=== PATIENT | male | born 1940 | race Caucasian/White ===

== ENCOUNTER → 2017-02-03 | Day surgery (SDC) | payer MEDICARE, OTHER ==
[~2017-02-03] VITALS: Ht 182.9 cm; Wt 96.3 kg
[~2017-02-03] MED LIST: CIPRO500 MG PO
--- NOTE | ~2017-02-03 | HP ---
[facility] AGE[facility] 76 Y [address] ROOM: [place] [address] [place] [facility] [place]: 02/03/2017 History & Physical DISCHARGE DATE: FAMILY PHYSICIAN: Martín Talbert MD ATTENDING PHYSICIAN: Shana Matthew DATE OF SERVICE: HISTORY OF PRESENT ILLNESS: The patient is a 76-year-old male, who has a rather long involved past history. Apparently had a TUR of the prostate in 1999 and then developed a bladder neck contracture, requiring a TUR of the bladder neck contracture. Then, he developed urethral stricture, which required frequent urethral dilatation. In 2004, a UroLume was inserted and he did fine as far as his voiding was concern. He stated he voided with a good full stream with no difficulty, but he had very poor healing with delayed epithelialization of the UroLume. Therefore, the UroLume was removed. As expected, it scarred down, he was then seen by Dr. Nevarez at [facility] and had surgical repair. Since then, he has had recurrence of his urethral stricture and has had to have a dilatation about once a year. Over the past several months, he has had increasing difficulty voiding with a very small caliber stream and seen now for urethral dilatation. PAST MEDICAL HISTORY: Illnesses: Arthritis. MEDICATIONS: None. OPERATIONS: 1. Cholecystectomy. 2. Appendectomy. 3. As above. ALLERGIES: KEFLEX. PHYSICAL EXAMINATION: GENERAL: A well-developed, well-nourished, alert male. CHEST: Clear to auscultation. HEART: Normal sinus rhythm. ABDOMEN: Soft with no palpable masses. [facility] AGE: 76 Y [address] ROOM: [place] [address] [place] [facility] [place]: 02/03/2017 History & Physical DISCHARGE DATE: FAMILY PHYSICIAN: Martín Talbert MD ATTENDING PHYSICIAN: Shana Matthew : Normal penis. Testicles are normal. Prostate is flat and benign. RECTAL: Good sphincter tone with no palpable masses. EXTREMITIES: Negative. IMPRESSION: Urethral stricture. PLAN: Dilatation. SHANA K MD AZEB MATTHEW/modl /[id number] D: [id number] T: [id number] HISTORY & PHYSICAL
--- NOTE | ~2017-02-03 | OR ---
PATIENT'S NAME: IVETH PHILLIPS [facility] AGE: 76 Y [address] ROOM: [place] [address] [place] [facility] [place]: 02/03/2017 OR/Procedure Report DISCHARGE DATE: FAMILY PHYSICIAN: Martín Talbert MD ATTENDING PHYSICIAN: Shana Matthew SURGEON: Shana Matthew MD DISPLAY CARVER: DATE OF PROCEDURE: 02/03/2017 PREOPERATIVE DIAGNOSIS: Urethral stricture. POSTOPERATIVE DIAGNOSIS: Urethral stricture. PROCEDURE: Cystoscopy, urethra dilatation with S-curve dilators. DESCRIPTION OF PROCEDURE: After adequate anesthesia, he was placed in dorsal lithotomy position and prepped and draped. A 20 scope was passed in the deep bulbous urethra. There was a stricture. Under direct vision, a guidewire was passed. The scope was removed and the stricture was dilated with S-curve dilators to #24-Upper Sorbian. The cystoscope was reinserted. It was passed through this strictured area. The external sphincter was normal. Prostatic fossa was opened. He has had a previous TUR of the prostate. Examination of the bladder was normal. The trigone was normal. There were no tumors, stones, or inflammation noted. A #20 Queen catheter was inserted and he was then accompanied to recovery area. SHANA MATTHEW MD EKL/modl /[id number] d: 02/03/17 1518 t: 02/05/17 0412, OPERATIVE SUMMARY
[2017-02-03 06:25] LABS: BASOPHIL # 0.1 K/uL (0.0-0.2); EOSINOPHIL # 0.2 K/uL (0.0-0.5); EOSINOPHIL % 3.5 %; HEMATOCRIT 44.6 % (37.0-53.0); HEMOGLOBIN 14.9 g/dL (11.0-16.0); IMMATURE GRANULOCYTE # 0.1 K/uL (0.0-0.3); IMMATURE GRANULOCYTE % 1.3 %; LYMPHOCYTE # 1.9 K/uL (0.8-4.0); LYMPHOCYTE % 30.5 %; MCH 28.4 pg (27.0-34.0); MCHC 33.4 gm/dL (32.0-36.5); MCV 85.1 fl (83.0-98.0); MONOCYTE # 0.7 K/uL (0.0-1.0); MONOCYTE % 11.3 %; MPV 9.7 fl (9.4-12.4); NEUTROPHIL # (ANC) 3.3 K/uL (1.4-9.0); NEUTROPHIL % 52.4 %; NRBC % 0 /100WBC (0-0.00); PLATELET COUNT 182 K/uL (150-450); RBC 5.24 M/uL (3.50-5.50); RDW-CV 14.1 % (11.9-14.6); WBC 6.2 K/uL (4.0-11.0)
[2017-02-03 06:44] LABS: ALBUMIN 3.8 gm/dL (3.5-5.0); ALK PHOS 67 IU/L (33-138); ALT 39 IU/L (12-78); ANION GAP 12.1 (10.0-19.0); AST 32 IU/L (10-40); BLOOD UREA NITROGEN 16 mg/dL (6-24); CALCIUM 8.2 mg/dL (8.5-10.5); CHLORIDE 112 mMol/L (96-110); CO2 23 mMol/L (22-32); CREATININE 1.1 mg/dL (0.6-1.3); ESTIMATED GFR (MDRD EQUATION) > 60; POTASSIUM 4.1 mMol/L (3.7-5.1); SODIUM 143 mMol/L (135-145); TOTAL BILIRUBIN 2.1 mg/dL (0.0-1.5); TOTAL PROTEIN 6.8 g/dL (6.0-8.4)
== END | disposition disaster alternative care site (69) ==
LOC: GPOC 02-02 16:00 → GSDC 05:49
PROVIDERS: Urology
PROC: 0T7D8ZZ Dilation of Urethra, Via Natural or Artificial Opening Endoscopic (ICD-10-PCS; principal; 2017-02-03)
DX: N35.9 Urethral stricture, unspecified (principal); M19.90 Unspecified osteoarthritis, unspecified site; Z90.49 Acquired absence of other specified parts of digestive tract
CPT/HCPCS: C1769; J0744; J7030

== ENCOUNTER 2017-02-08 17:15 | Emergency (ER) | payer MEDICARE, OTHER ==
--- NOTE | ~2017-02-08 | ER ---
PATIENT'S NAME: IVETH PHILLIPS [facility] AGE: 76 Y [address] ROOM: [place] [address] LOCATION: ED ADMIT DATE: 02/08/2017 ER/Outpatient Report DISCHARGE DATE: 02/08/2017 FAMILY PHYSICIAN: Martín Talbert MD ATTENDING PHYSICIAN: Navin Toscano Time of Arrival: 1717 hours. Time of Exam: 1717 hours. CHIEF COMPLAINT: Possible urinary infection. HISTORY OF PRESENT ILLNESS: The patient states he had urethral dilatation done on 02/03/2017, by Dr. Matthew. Queen catheter was placed. He was to remove it today at home which he did this morning. He states he voided a couple of times without any problems and then began having problems urinating. He did go to Dr. Matthew's office, the doctor was not available, but the nurse there did cath him and states that they checked for residual. He reports that it was 300 mL. He did not have them leave the cath in. He comes in this evening with concerns that he may be having an infection going on. He states that he is starting to run a fever. He is still having to urinate frequently. Denies any pain with urinating. Has had a decreased appetite today. ALLERGIES: SULFA, JOEL, BENZOCAINE SPRAY, KEFLEX. MEDICATIONS: He states he had [place] at home for pain and he took one of those this morning. He states he was given prednisone 20 mg this morning for gout. PAST MEDICAL HISTORY: Benign prostatic hypertrophy, frequent urethral strictures, gout. PAST SURGERIES: Back surgery x5, cholecystectomy, appendectomy, transurethral resection of prostate. SOCIAL HISTORY: The patient lives at home. Denies use of tobacco, drugs, or alcohol. REVIEW OF SYSTEMS: All negative other than those mentioned in the HPI. PHYSICAL EXAMINATION: [facility] 76 Y [address] ROOM: [place] [address] LOCATION: [facility] ADMIT DATE: 02/08/2017 ER/Outpatient Report DISCHARGE DATE: 02/08/2017 FAMILY PHYSICIAN: Martín Talbert MD ATTENDING PHYSICIAN: Navin Toscano VITAL SIGNS: He weighed 99.6 kilograms; blood pressure is 136/82; pulse of 108; respirations 18; temperature of 99.3, tympanic; O2 saturation was 98% on room air. GENERAL: He is awake, alert, and oriented x4. SKIN: Becker, warm, and dry. LUNGS: Respirations are even and nonlabored. Lung sounds were clear throughout. HEART: Regular rate and rhythm. ABDOMEN: Soft, nondistended. Bowel sounds are present. LABORATORY DATA: Lab work was drawn. CBC is within normal limits. Chem panel is within normal limits. BUN is 15 with creatinine 1.1. Lactate was 1.3. Procalcitonin was normal. Urine negative for leukocytes and nitrites, did have small amount of blood, negative for white blood cells, few bacteria. Did do a residual voiding check, it was 296. The patient states he has a Cipro pill to take tonight from Dr. Matthew from postop. IMPRESSION: Urinary frequency. PLAN: Home, rest, fluids. Continue his current medications. Take the Cipro as directed. Follow up with Dr. Matthew in the morning. Return to the ER as needed. He verbalized understanding. JERAMIE ROME APRN FOR MD YADY EDOUARD/anahi /[id number] d: 02/09/17 0356 t: 02/20/17 1810, OUTPATIENT REPORT
[2017-02-08 17:39] LABS: BASOPHIL # 0.1 K/uL (0.0-0.2); BASOPHIL % 0.5 %; EOSINOPHIL % 0.1 %; HEMATOCRIT 42.7 % (37.0-53.0); HEMOGLOBIN 14.7 g/dL (11.0-16.0); IMMATURE GRANULOCYTE # 0.2 K/uL (0.0-0.3); LYMPHOCYTE # 0.6 K/uL (0.8-4.0); LYMPHOCYTE % 5.8 %; MCH 28.4 pg (27.0-34.0); MCHC 34.4 gm/dL (32.0-36.5); MCV 82.6 fl (83.0-98.0); MONOCYTE # 0.4 K/uL (0.0-1.0); MONOCYTE % 3.8 %; MPV 9.7 fl (9.4-12.4); NEUTROPHIL # (ANC) 8.3 K/uL (1.4-9.0); NEUTROPHIL % 87.8 %; NRBC % 0 /100WBC (0-0.00); PLATELET COUNT 210 K/uL (150-450); RBC 5.17 M/uL (3.50-5.50); RDW-CV 14.3 % (11.9-14.6); WBC 9.5 K/uL (4.0-11.0)
[2017-02-08 17:49] LABS: BILIRUBIN URINE NEGATIVE (NEGATIVE); BLOOD URINE 50 /UL (NEGATIVE); COLOR URINE YELLOW (YELLOW); GLUCOSE URINE NEGATIVE (NEGATIVE); KETONE URINE NEGATIVE (NEGATIVE); LEUKOCYTES URINE NEGATIVE /UL (NEGATIVE); NITRITE URINE NEGATIVE (NEGATIVE); PROTEIN URINE NEGATIVE (NEGATIVE); TURBIDITY URINE CLEAR (CLEAR); UROBILINOGEN URINE NORMAL (NORMAL)
[2017-02-08 17:57] LABS: ALBUMIN 3.9 gm/dL (3.5-5.0); ALK PHOS 71 IU/L (33-138); ALT 33 IU/L (12-78); AST 27 IU/L (10-40); BLOOD UREA NITROGEN 15 mg/dL (6-24); CALCIUM 8.5 mg/dL (8.5-10.5); CHLORIDE 108 mMol/L (96-110); CO2 18 mMol/L (22-32); CREATININE 1.1 mg/dL (0.6-1.3); ESTIMATED GFR (MDRD EQUATION) > 60; SODIUM 139 mMol/L (135-145); TOTAL BILIRUBIN 1.9 mg/dL (0.0-1.5); TOTAL PROTEIN 7.6 g/dL (6.0-8.4)
[2017-02-08 17:57] LABS: WBC URINE NEGATIVE #/HPF (NEGATIVE)
[2017-02-08 17:58] LABS: BACTERIA URINE FEW (NEGATIVE); EPITHELIAL URINE NEGATIVE #/HPF (NEGATIVE); RENAL EPITH URINE NEGATIVE #/HPF (NEGATIVE)
== END 2017-02-08 18:15 | disposition disaster alternative care site (69) ==
LOC: GMED 17:15
PROVIDERS: Emergency Medicine
DX: R35.0 Frequency of micturition (principal); N35.9 Urethral stricture, unspecified; M10.9 Gout, unspecified; Z88.8 Allergy status to other drugs, medicaments and biological substances; Z90.49 Acquired absence of other specified parts of digestive tract; Z98.890 Other specified postprocedural states; Z88.1 Allergy status to other antibiotic agents; Z88.2 Allergy status to sulfonamides; Z79.899 Other long term (current) drug therapy

== ENCOUNTER → 2017-03-23 | Outpatient (CLI) | payer MEDICARE, OTHER ==
--- NOTE | ~2017-03-23 | NDGEN ---
PATIENT'S NAME: IVETH PHILLIPS [facility] AGE: 76 Y [address] ROOM: [place] [address] LOCATION: [facility] ADMIT DATE: 03/23/2017 Neurodiagnostics DISCHARGE DATE: FAMILY PHYSICIAN: Martín Talbert MD ATTENDING PHYSICIAN: Martín Talbert DATE OF PROCEDURE: 03/23/2017 STUDIES: Nerve conduction EMG of the bilateral lower extremities. This is a 76-year-old male. The patient had this study done on 03/23/2017 at the request of Dr. Talbert. DESCRIPTION OF PROCEDURE: This 76-year-old patient has had prior back surgery. He says that he developed a dropped foot on the left sometime after surgery, however, he has had some progressive difficulty with walking and complaints of numbness into his bilateral lower extremities. On physical exam, he has excellent power of dorsiflexion, inversion, and eversion of the right foot, but the left foot revealed a dropped foot which he can hardly dorsiflex. There was thinning of the muscles of the compartments of the lower leg as well as thinning of the muscles into the feet. He also has bilateral high-arched feet. Nerve conduction studies were performed in the bilateral lower extremities. With repeat electrical stimulation, there was completely absent compound motor action potentials and sensory nerve action potentials seen in the bilateral lower extremities. On needle EMG placed into the left lower extremity on attempts to dorsiflex the left foot, there was decreased activation of motor units that was seen was normal in size at the initial recruitment. Other muscles into the lower extremity including gastrocnemius muscles were within normal limits. On the right lower extremity, they were also normal. There was completely normal recruitment of motor unit action potentials in the tibialis anterior, and the gastrocnemius muscles. There was no evidence of any fibrillation potentials or positive sharp waves seen. IMPRESSION: The pattern seen here on nerve conduction studies is consistent with a distal symmetric type of neuropathy showing absent compound motor action potentials and absent sensory nerve action potentials. However with excellent recruitment of motor unit action potentials in the right lower extremity with normal sizes of motor units and some subtle ability to dorsiflex the left foot with normal sizes of motor units along with a normal gastrocnemius muscle on plantar flexion on the left. This pattern seems to be PATIENT'S NAME: IVETH PHILLIPS [facility] AGE: 76 Y [address] 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 Picture of thinning of his muscles of the lower extremity, high arched feet pointed this as on a morphologic basis. There really was no evidence to support a lumbar radiculopathy based upon findings of very normal size motor units that would normally be large and multiphasic, if there was a significant lumbar radiculopathy. The dropped foot on the left may have been an incidental finding post surgery, as a second hit phenomenon to an already existing hereditary motor sensory neuropathy. MD KAUSHIK CRABAJAL/ghadal /[id number] dtt: 04/07/17 1730 , KHADAR DORAN dtd: 03/23/17 1841
== END | disposition disaster alternative care site (69) ==
LOC: GNEU 14:51
DX: M54.9 Dorsalgia, unspecified (principal); R20.0 Anesthesia of skin

== ENCOUNTER → 2017-03-26 | Outpatient (CLI) | payer MEDICARE, OTHER | END | disposition disaster alternative care site (69) | LOC: GRAD 12:23 | DX: M54.2 Cervicalgia (principal); M54.9 Dorsalgia, unspecified; M43.22 Fusion of spine, cervical region; M47.892 Other spondylosis, cervical region; M48.02 Spinal stenosis, cervical region; M47.896 Other spondylosis, lumbar region; R20.0 Anesthesia of skin; Z98.890 Other specified postprocedural states ==

== ENCOUNTER → 2017-06-02 | Day surgery (SDC) | payer MEDICARE, OTHER ==
[~2017-06-02] VITALS: Ht 182.9 cm; Wt 94.7 kg
--- NOTE | ~2017-06-02 | HP ---
[facility] 76 Y [address] ROOM: [place] [address] LOCATION: [facility] [place]MIT DATE: 06/02/2017 History & Physical DISCHARGE DATE: FAMILY PHYSICIAN: Martín Talbert MD ATTENDING PHYSICIAN: Shana Matthew CORRECTED COPY -- / kld DATE OF SERVICE: HISTORY OF PRESENT ILLNESS: A 76-year-old male who has a rather long involved past history. He had a TUR of the prostate in 1999 and subsequently developed a bladder neck contracture requiring a TUR of the bladder neck contracture. He then developed urethral stricture and became resistant to frequent urethral dilatations. In 2004, a UroLume was inserted and he did fine. His voiding was normal with a good, full stream with no difficulty. However, he had very slow, poor healing with delayed epithelialization of the UroLume, and therefore, he insisted on having the UroLume removed, and then he was seen by Dr. Nevarez at [facility] for surgical repair of his urethral stricture. Since then, he has had problems with recurrent of his stricture and presently is voiding with a very small caliber stream with difficulty voiding and seen now for dilatation. PAST MEDICAL HISTORY: Illnesses: Arthritis. MEDICATIONS: None. ALLERGIES: KEFLEX. PAST SURGICAL HISTORY: Operations: 1. Cholecystectomy. 2. Appendectomy. 3. As above. PHYSICAL EXAMINATION: GENERAL: A well-developed, well-nourished, alert male. CHEST: Clear to auscultation. HEART: Normal sinus rhythm. PAT[facility]'S [facility] AGE: 76 Y [address] ROOM: [place] [address] LOC[place]: [facility] [place]MIT DATE: 06/02/2017 History & Physical DISCHARGE DATE: FAMILY PHYSICIAN: Martín Talbert MD ATTENDING PHYSICIAN: Shana Matthew ABDOMEN: Soft with no palpable masses. GENITOURINARY: Normal penis. Testicles are normal. Prostate is flat and benign. RECTAL: Good sphincter tone with no palpable masses. EXTREMITIES: Negative. IMPRESSION: Urethral stricture. PLAN: Cysto, urethral dilatation. SHANA K MD AZEB MATTHEW/anahi /[id number] CORRECTED COPY -- / kld D: [id number] T: [id number] HISTORY & PHYSICAL
--- NOTE | ~2017-06-02 | OR ---
PATIENT'S NAME: IVETH PHILLIPS [facility] AGE: 76 Y [address] ROOM: [place] [address] [place]: [facility] [place] DATE: 06/02/2017 OR/Procedure Report DISCHARGE DATE: FAMILY PHYSICIAN: Martín Talbert MD ATTENDING PHYSICIAN: Shana Matthew SURGEON: Shana Matthew MD RIB BUILDER: DATE OF PROCEDURE: 06/02/2017 PREOPERATIVE DIAGNOSIS: Urethral stricture. POSTOPERATIVE DIAGNOSIS: Urethral stricture. PROCEDURE: Cystoscopy and urethral dilatation. PROCEDURE IN DETAIL: After adequate anesthesia, he was prepped and draped. A cystoscope was inserted, passed through the anterior urethra. In the bulbous area at the distal end of his previous urethroplasty, it was strictured down. A guidewire was then passed and over the guidewire, the S curve dilators were passed and dilating the stricture to a 20-Slovak. The cystoscope was then reinserted, passed through this area. The rest of the bulbous urethra was also tight but not scarred near as much as the distal end. Prostate was open with no re-prostatic regrowth. The bladder was normal. Trigone was normal. There were no tumors, stones, or inflammation in the bladder. A #20 Queen catheter was inserted and he was then accompanied to recovery area. SHANA MATTHEW MD EKL/modl /[id number] d: 06/02/17 0851 t: 06/03/17 0510, OPERATIVE SUMMARY
[2017-06-02 06:07] LABS: HEMATOCRIT 39.4 % (37.0-53.0); HEMOGLOBIN 13.5 g/dL (11.0-16.0); MCH 29.9 pg (27.0-34.0); MCHC 34.3 gm/dL (32.0-36.5); PLATELET COUNT 203 K/uL (150-450); RBC 4.52 M/uL (3.50-5.50); RDW-CV 15.5 % (11.9-14.6); WBC 9.2 K/uL (4.0-11.0)
[2017-06-02 06:10] LABS: MCV 87.2 fl (83.0-98.0)
[2017-06-02 06:42] LABS: ABSOLUTE NEUTROPHIL CT (ANC) 5.8 K/uL (1.4-9.0); BANDED NEUTROPHIL # 0.5 K/uL (0.0-0.1); BANDED NEUTROPHILS % 5 %; LYMPHOCYTE # 2.3 K/uL (0.8-4.0); LYMPHOCYTE % 25 %; MONOCYTE # 0.8 K/uL (0.0-1.0); SEGMENTED NEUTROPHIL # 5.3 K/uL (1.4-9.0); SEGMENTED NEUTROPHIL % 58 %
== END | disposition disaster alternative care site (69) ==
LOC: GPOC 06-01 14:00 → GSDC 05:24 → GPOC 05:30
PROVIDERS: Urology
PROC: 0T7D8ZZ Dilation of Urethra, Via Natural or Artificial Opening Endoscopic (ICD-10-PCS; principal; 2017-06-02)
DX: N35.9 Urethral stricture, unspecified (principal); M19.90 Unspecified osteoarthritis, unspecified site; Z88.1 Allergy status to other antibiotic agents; Z90.49 Acquired absence of other specified parts of digestive tract
CPT/HCPCS: C1769; J0295; J2001; J7040; J7120

== ENCOUNTER 2017-06-08 22:03 | Emergency (ER) | payer MEDICARE, OTHER ==
--- NOTE | ~2017-06-08 | ER ---
PATIENT'S NAME: IVETH PHILLIPS [facility] AGE: 76 Y [address] ROOM: [place] [address] LOCATION: [facility] ADMIT DATE: 06/08/2017 ER/Outpatient Report DISCHARGE DATE: 06/08/2017 FAMILY PHYSICIAN: Martín Talbert MD ATTENDING PHYSICIAN: Navin Toscano Admission date and time documented in the medical record. I saw the patient at 2220 hours. CHIEF COMPLAINT: Problems urinating with frequency, urgency, and dysuria. HISTORY OF PRESENT ILLNESS: This patient is a 76-year-old male who 5 days ago had urethral surgery per Dr. Matthew, urologist. He had an indwelling Queen catheter. He started passing urine around the catheter Wednesday. He called the urologist on-call and they told him to remove the catheter. He did remove the catheter. Since that time, he has had problems passing his urine. He has had some urinary frequency, urgency, and dysuria. No fever, chills, or sweats. No abdominal pain, back pain, chest pain, or shortness of breath. No headache, eyes, ears, nose, throat, neck, or spine pain. No fall or trauma. No lightheadedness, dizziness, syncope, or near syncope. No neuro changes, psych issues, or endocrine problems. He has had some BPH, he has had TURP, and then he had some resultant urethral stricture problems. HOME MEDICATIONS: None. ALLERGIES: SULFA, JOEL, BENZOCAINE SPRAY, AND KEFLEX. SOCIAL HISTORY: Nonsmoker and nondrinker. SIGNIFICANT PAST MEDICAL HISTORY: Benign prostatic hypertrophy, urethral strictures, and gout. OPERATIONS: Appendectomy, cholecystectomy, back surgery x5, transurethral resection of the prostate, and urethral surgery. REVIEW OF SYSTEMS: All systems reviewed by me are negative with the exception of those discussed in the history of present illness. PATIENT'S NAME: IVETH PHILLIPS [facility] AGE: 76 Y [address] ROOM: [place] [address] LOCATION: [facility] ADMIT DATE: 06/08/2017 ER/Outpatient Report DISCHARGE DATE: 06/08/2017 FAMILY PHYSICIAN: Martín Talbert MD ATTENDING PHYSICIAN: Navin Toscano PHYSICAL EXAMINATION: VITAL SIGNS: Temperature 97.7, pulse 64, respirations 18, blood pressure 164/74, and O2 saturation room air is 99%. LUNGS: Clear. HEART: Regular. ABDOMEN: Soft, nondistended, and nontender. Active bowel tones. No organomegaly or abnormal mass palpable. No CVA tenderness. LABORATORY DATA AND X-RAYS: Bladder scan showed about 40 to 45 mL of urine in his bladder. He was able to give us a small amount of urine. Urinalysis showed 10 to 20 whites, 0 to 2 reds, 5 to 10 epithelial cells, negative bacteria, 1+ mucus per high-powered field, negative nitrites on dipstick. White count was 8400, 62 segs, 22 lymphs, 9 monos, 2 eos, 1 baso, hemoglobin 13.2, hematocrit 38.9, and platelet count was 214,000. CMS was normal except for a slightly low calcium of 8.2. His kidney function was good. IMPRESSION: Urinary symptoms of dysuria, frequency, and urgency, status post urethral surgery 5 days ago. The patient felt like he is having some urinary retention, although he only had about 40 to 45 mL of urine in his bladder on bladder scan. We did culture his urine, he did have an obvious urinary tract infection. PLAN: I did offer the patient to replace his catheter. He thought he would try through the night and see Dr. Matthew in the morning. I think this is okay and discharged him home, observation, activity as tolerated, and fluids and diet as tolerated. Continue the patient's home care and medications. Follow up with Dr. Matthew tomorrow, personal physician, as needed. Discussion ensued with the patient and his concerning my findings and recommendations, they understand. MD LEON EDOUARD/anahi /[id number] d: 06/09/17 0134 t: 06/09/17 1820, OUTPATIENT REPORT
[2017-06-08 22:46] LABS: BASOPHIL # 0.1 K/uL (0.0-0.2); BASOPHIL % 0.6 %; EOSINOPHIL # 0.2 K/uL (0.0-0.5); EOSINOPHIL % 2.4 %; HEMATOCRIT 38.9 % (37.0-53.0); HEMOGLOBIN 13.2 g/dL (11.0-16.0); IMMATURE GRANULOCYTE # 0.3 K/uL (0.0-0.3); IMMATURE GRANULOCYTE % 3.7 %; LYMPHOCYTE # 1.9 K/uL (0.8-4.0); LYMPHOCYTE % 22.2 %; MCH 29.7 pg (27.0-34.0); MCHC 33.9 gm/dL (32.0-36.5); MCV 87.4 fl (83.0-98.0); MONOCYTE # 0.8 K/uL (0.0-1.0); MONOCYTE % 9.2 %; MPV 9.1 fl (9.4-12.4); NEUTROPHIL # (ANC) 5.2 K/uL (1.4-9.0); NEUTROPHIL % 61.9 %; NRBC % 0 /100WBC (0-0.00); PLATELET COUNT 214 K/uL (150-450); RBC 4.45 M/uL (3.50-5.50); RDW-CV 15.2 % (11.9-14.6); WBC 8.4 K/uL (4.0-11.0)
[2017-06-08 23:02] LABS: ALBUMIN 3.3 gm/dL (3.5-5.0); ANION GAP 11.8 (10.0-19.0); CALCIUM 8.2 mg/dL (8.5-10.5); CREATININE 1.1 mg/dL (0.6-1.3); POTASSIUM 3.8 mMol/L (3.7-5.1); TOTAL BILIRUBIN 1.3 mg/dL (0.0-1.5); TOTAL PROTEIN 6.3 g/dL (6.0-8.4)
[2017-06-08 23:07] LABS: BILIRUBIN URINE NEGATIVE (NEGATIVE); BLOOD URINE 10 /UL (NEGATIVE); COLOR URINE YELLOW (YELLOW); GLUCOSE URINE NEGATIVE (NEGATIVE); KETONE URINE NEGATIVE (NEGATIVE); LEUKOCYTES URINE 500 /UL (NEGATIVE); NITRITE URINE NEGATIVE (NEGATIVE); PROTEIN URINE 15 mg/dL (NEGATIVE); TURBIDITY URINE 1+ (CLEAR); UROBILINOGEN URINE NORMAL (NORMAL)
[2017-06-08 23:14] LABS: BACTERIA URINE NEGATIVE (NEGATIVE); MUCUS URINE 1+ (NEGATIVE); RBC URINE 0-2 #/HPF (NEGATIVE)
== END 2017-06-08 23:29 | disposition disaster alternative care site (69) ==
LOC: GMED 22:03
PROVIDERS: Emergency Medicine
PROC: 4A0D7BZ Measurement of Urinary Pressure, Via Natural or Artificial Opening (ICD-10-PCS; principal; 2017-06-08)
DX: R30.0 Dysuria (principal); R35.0 Frequency of micturition; R39.15 Urgency of urination; N40.0 Benign prostatic hyperplasia without lower urinary tract symptoms; Z98.890 Other specified postprocedural states; Z90.49 Acquired absence of other specified parts of digestive tract; Z88.2 Allergy status to sulfonamides; Z88.1 Allergy status to other antibiotic agents; Z88.8 Allergy status to other drugs, medicaments and biological substances; Z90.79 Acquired absence of other genital organ(s)

== ENCOUNTER 2017-06-11 02:47 | Emergency (ER) | payer MEDICARE, OTHER ==
--- NOTE | ~2017-06-11 | ER ---
PATIENT'S NAME: IVETH PHILLIPS [facility] AGE: 76 Y [address] ROOM: [place] [address] LOCATION: [facility] ADMIT DATE: 06/11/2017 ER/Outpatient Report DISCHARGE DATE: 06/11/2017 FAMILY PHYSICIAN: Martín Talbert MD ATTENDING PHYSICIAN: Navin Toscano Admission date and time are documented in the medical record. I saw the patient at 0300 hours. CHIEF COMPLAINT: Urine retention. HISTORY OF PRESENT ILLNESS: This patient is a 76-year-old male who comes in with urinary retention and pain with urination. He has been doing some self-cathing this past 24 hours, he was just unable to get the catheter in and now is having urine retention, and wants a Queen catheter placed. HOME MEDICATIONS: None. ALLERGIES: BENZOCAINE, SULFA, AND KEFLEX. SOCIAL HISTORY: Nonsmoker, nondrinker. SIGNIFICANT PAST MEDICAL HISTORY: Benign prostatic hypertrophy, urethral stricture, and urine retention. OPERATIONS: Cholecystectomy, appendectomy, bilateral foot surgery, and spine surgery x5. REVIEW OF SYSTEMS: All systems reviewed by me are negative with the exception of those discussed in history of present illness. PHYSICAL EXAMINATION: VITAL SIGNS: Temperature 96.5, pulse 95, respirations 18, blood pressure 155/87, and O2 sat on room air is 96%. ABDOMEN: Soft. Active bowel tones. Some suprapubic discomfort. GENITALIA: Intact. EMERGENCY DEPARTMENT COURSE: I did place a Queen catheter. It drained about 250 to 300 mL of urine. Left PATIENT'S NAME: IVETH PHILLIPS [facility] AGE: 76 Y [address] ROOM: [place] [address] LOCATION: [facility] ADMIT DATE: 06/11/2017 ER/Outpatient Report DISCHARGE DATE: 06/11/2017 FAMILY PHYSICIAN: Martín Talbert MD ATTENDING PHYSICIAN: Navin Toscano the catheter in. He is going to use a leg bag. IMPRESSION: Urinary retention. PLAN: The patient dismissed home. Observation. Activity as tolerated. Continue present home medications and care. Follow up with Urology as scheduled or as needed and follow up with personal physician as needed. MD LEON EDOUARD/anahi /[id number] d: 06/11/17 0359 t: 06/11/17 1826, OUTPATIENT REPORT
== END 2017-06-11 03:30 | disposition disaster alternative care site (69) ==
LOC: GMED 02:47
PROC: 0T2BX0Z Change Drainage Device in Bladder, External Approach (ICD-10-PCS; principal; 2017-06-11)
DX: R33.9 Retention of urine, unspecified (principal); Z90.49 Acquired absence of other specified parts of digestive tract; Z88.1 Allergy status to other antibiotic agents; Z88.2 Allergy status to sulfonamides; Z88.8 Allergy status to other drugs, medicaments and biological substances; Z98.890 Other specified postprocedural states